=== PATIENT | female | born 1995 | race African-American/Black ===

== ENCOUNTER 2020-03-08 21:22 | Emergency (ER) | payer MEDICAID ==
[~2020-03-08] VITALS: Ht 172.7 cm; Wt 70.3 kg
[2020-03-08 21:25] VITALS: BP 141/89
--- NOTE | 2020-03-08 21:25 | NUR ---
ED Nurse Note: walked in to ed c/o substernal dull chest pain onset couple months that got worse 2 days ago. pt reports nonradiating intermittent pain, denies any other symptoms. vss, nad, aaox4, ambulatory ,ermd at bedside, on telemetry monitor.
--- NOTE | 2020-03-08 21:34 | NUR ---
ED Nurse Note: blood, urine collected and sent to lab. xr at bedside
[2020-03-08 22:01] LABS: BASOPHILS % (AUTO) 1.6 % (0.0-2.0); EOSINOPHILS % (AUTO) 1.8 % (0.0-3.0); HEMATOCRIT 37.9 % (37.0-47.0); HEMOGLOBIN 12.2 G/DL (12.0-16.0); LYMPHOCYTES % (AUTO) 33.6 % (20.0-45.0); MEAN CORPUSCULAR VOLUME 89 FL (80-99); MONOCYTES % (AUTO) 11.4 % (1.0-10.0); NEUTROPHILS % (AUTO) 51.6 % (45.0-75.0); PLATELET COUNT 171 K/UL (150-450); RED BLOOD COUNT 4.25 M/UL (4.20-5.40); RED CELL DISTRIBUTION WIDTH 12.4 % (11.6-14.8); WHITE BLOOD COUNT 6.3 K/UL (4.8-10.8)
--- NOTE | 2020-03-08 22:04 | Emergency Room Report ---
History of Present Illness General Chief Complaint: Chest Pain Source: Patient Present Illness HPI This is a 24-year-old female with no past medical history. She presents with chief complaint of palpitation. This been intermittent problem for 2 weeks. She is woke up 1 day feeling her heart beating fast. Not irregular. No chest pain. No nausea no vomiting. No stressors. Eating drinking normally. When heart beating fast he felt some discomfort in her chest but otherwise no evidence of chest pain. No referred pain. No anginal equivalent pain. No exertional dyspnea. Allergies: Coded Allergies: No Known Allergies (Unverified , 03/08/20) COVID-19 Screening Contact w/high risk pt: No Experienced COVID-19 symptoms?: No COVID-19 Testing performed STRAPPER OPERATOR: No Patient History Past Medical History: none, see triage record, old chart reviewed Past Surgical History: none Pertinent Family History: none Social History: Denies: smoking Last Menstrual Period: feb 16 2020 Now: No Immunizations: other Reviewed Nursing Documentation: PMH: Agreed; PSxH: Agreed Nursing Documentation-PMH Past Medical History: No Stated History Review of Systems Eye: Denies: eye pain, blurred vision ENT: Denies: ear pain, nose congestion, throat swelling Respiratory: Denies: cough, shortness of breath Cardiovascular: Reports: palpitations; Denies: chest pain Gastrointestinal: Denies: abdominal pain, diarrhea, nausea, vomiting Musculoskeletal: Denies: back pain, joint pain Skin: Denies: rash Neurological: Denies: headache, numbness Endocrine: Denies: increased thirst, increased urine Hematologic/Lymphatic: Denies: easy bruising All Other Systems: negative except mentioned in HPI Physical Exam Vital Signs Date Time Temp Pulse Resp B/P (MAP) Pulse Ox O2 Delivery O2 Flow Rate FiO2 03/08/20 21:25 98.6 120 15 148/98 (115) 97 Room Air Vitals with tachycardia Sp02 EP Interpretation: reviewed, normal General Appearance: well appearing, no apparent distress, alert Head: normocephalic, atraumatic Eyes: bilateral eye PERRL, bilateral eye EOMI ENT: hearing grossly normal, normal pharynx Neck: full range of motion, supple, no meningismus Respiratory: chest non-tender, lungs clear, normal breath sounds Cardiovascular #1: regular rate, rhythm, no murmur Gastrointestinal: normal bowel sounds, non tender, no mass, no organomegaly, no bruit, non-distended Musculoskeletal: back normal, normal range of motion, gait/station normal Psychiatric: mood/affect normal Medical Decision Making Diagnostic Impression: Primary Impression: Palpitations ER Course Patient presents with palpitation. Her heart rate would run from 90s to the 110s. Thyroid function normal. No evidence of ACS, PE, dissection to name a few. I did a CT scan because D-dimer machine was not working. CT scan was negative. Will discharge home. EKG Diagnostic Results Troponin ordered: Yes Rate: normal, tachycardiac Rhythm: NSR ST Segments: no acute changes Rhythm Strip Diag. Results EP Interpretation: yes Rate: 103 Rhythm: NSR CT/MRI/US Diagnostic Results CT/MRI/US Diagnostic Results : Imaging Test Ordered: CT chest Impression Negative per radiologist Last Vital Signs Date Time Temp Pulse Resp B/P (MAP) Pulse Ox O2 Delivery O2 Flow Rate FiO2 03/08/20 21:25 98.6 120 15 148/98 (115) 97 Room Air Status: improved Disposition: HOME, SELF-CARE Condition: Stable Referrals: NON PHYSICIAN (PCP) Additional Instructions: Follow-up with your doctor in 7 days. Recommend outpatient referral to see door clamper for further work-up and Holter monitor. Return if symptoms worsen. Jose J Linder MD Mar 08, 2020 22:04
[2020-03-08 22:13] LABS: ANION GAP 7 mmol/L (5-15); BLOOD UREA NITROGEN 15 mg/dL (7-18); CALCIUM 8.6 MG/DL (8.5-10.1); CARBON DIOXIDE 28 MMOL/L (21-32); CHLORIDE 103 MMOL/L (98-107); CREATININE 1.3 MG/DL (0.55-1.30); POTASSIUM 3.7 MMOL/L (3.5-5.1); SODIUM 138 MMOL/L (136-145)
[2020-03-08 22:18] LABS: ALANINE AMINOTRANSFERASE 14 U/L (12-78); ALBUMIN 3.9 G/DL (3.4-5.0); ALKALINE PHOSPHATASE 53 U/L (46-116); ASPARTATE AMINO TRANSFERASE 12 U/L (15-37); BILIRUBIN,TOTAL 0.3 MG/DL (0.2-1.0)
[2020-03-09] MEDS ORDERED: Omnipaque 350 100ml vial INJ PRN (00:15)
--- NOTE | 2020-03-09 00:50 | NUR ---
ED Nurse Note: pt went for cta
--- NOTE | 2020-03-09 01:00 | NUR ---
ED Nurse Note: pt back from cta
--- NOTE | 2020-03-09 01:21 | Diagnostic Imaging Report ---
EXAM: CT Angiography Chest With Intravenous Contrast CLINICAL HISTORY: SOB TECHNIQUE: Axial computed tomographic angiography images of the chest with intravenous contrast. CTDI is 57.9 mGy and DLP is 192.1 mGy-cm. One or more of the following dose reduction techniques were used: automated exposure control, adjustment of the mA and/or kV according to patient size, use of iterative reconstruction technique. MIP reconstructed images were created and reviewed. COMPARISON: No relevant prior studies available. FINDINGS: Pulmonary arteries: No pulmonary embolus. Aorta: No acute findings. No thoracic aortic aneurysm. Lungs: Mild bilateral peribronchial thickening. No consolidation or mass. Pleural space: No significant abnormality. No significant effusion. No pneumothorax. Heart: No cardiomegaly. No significant pericardial effusion. Bones/joints: No acute fracture. Soft tissues: No significant abnormality. Lymph nodes: Calcified mediastinal lymph node is compatible with the sequela of prior granulomatous disease. IMPRESSION: No pulmonary embolus.
[2020-03-09 01:30] VITALS: BP 128/81
--- NOTE | 2020-03-09 01:30 | NUR ---
ER DISCHARGE NOTE: Patient is cleared to be discharged per ERMD, pt is aox4, on room air, with stable vital signs. pt was given dc instructions, pt was able to verbalize understanding, pt id band and iv site removed without complications. pt is able to ambulate with steady gait. pt took all belongings.
--- NOTE | 2020-03-09 17:41 | Diagnostic Imaging Report ---
Indication: Chest pain Technique: One view of the chest Comparison: none Findings: Lungs and pleural spaces are clear. Heart size is normal. Impression: No acute process
--- NOTE | 2020-03-11 16:15 | Cardiology Report ---
APPROVED REPORT EKG Measurement Heart [id number] <Conclusion> Sinus tachycardia Otherwise normal ECG
== END 2020-03-09 01:30 | disposition home or self-care (01) ==
LOC: EMR 21:45
DX: R00.2 Palpitations (principal); R00.0 Tachycardia, unspecified; R07.9 Chest pain, unspecified
CPT/HCPCS: 36415; 71045; 71275; 80053; 81025; 84439; 84443; 84484; 85025; 85379; 93005; 96360; J7030; Q9967; Z7502; 99284